=== PATIENT | male | born 1965 | race Caucasian/White ===

== ENCOUNTER 2019-12-13 09:25 | Emergency (ER) | payer BC ==
[2019-12-13] MEDS ORDERED: amLODIPine 5 MG Tab PO ONE (09:48)
[2019-12-13] MEDS ORDERED: Nitroglycerin 0.4 MG Tab.SL SL ONE (09:51)
[2019-12-13 10:01] VITALS: PULSE 73
[2019-12-13] MEDS ORDERED: Aspirin 81 MG Tab.Chew PO ONE (10:04)
--- NOTE | 2019-12-13 10:04 | EDM.PDOC ---
ED HPI GENERAL MEDICAL PROBLEM - General Chief Complaint: Chest Pain Stated Complaint: CHEST PAIN, SOB Time Seen by Provider: 12/13/19 09:40 Source of Information: Reports: Patient History Limitations: Reports: No Limitations - History of Present Illness INITIAL COMMENTS - FREE TEXT/NARRATIVE: comes in from work states he was hauling things at work when he developed the pain in the left side of the chest wall with radiation to the left arm up to the left elbow has pain in the left side of the neck also about 6-8 states he had the same pain 2 weeks ago and went in to be seen . Was told he needed to have tests run, he declined . So was told if pain returns and is more painful he should come in pt is a smoker , 1/2 pack a day has history of hypertension , not taking medications does not know whether he has had stress test done in the past Ate breakfast ( cant check lipid levels) Chest Pain Score (Numeric/FACES): 5 - Related Data Allergies Allergy/AdvReac Type Severity Reaction Status Date / Time No Known Allergies Allergy Verified 07/23/16 13:56 Home Meds: Home Meds amLODIPine [Norvasc] 5 mg PO DAILY #30 tab 12/13/19 [Rx] Past Medical History HEENT History: Reports: None Cardiovascular History: Reports: Hypertension Respiratory History: Reports: None Gastrointestinal History: Reports: Other (See Below) Other Gastrointestinal History: diverticulitis Genitourinary History: Reports: Other (See Below) Other Genitourinary History: Hx kidney stones Musculoskeletal History: Reports: None Neurological History: Reports: None Psychiatric History: Reports: None Endocrine/Metabolic History: Reports: None Hematologic History: Reports: None Immunologic History: Reports: None Oncologic (Cancer) History: Reports: None Dermatologic History: Reports: None - Infectious Disease History Infectious Disease History: Reports: Chicken Pox, Measles, Mumps - Past Surgical History HEENT Surgical History: Reports: None Cardiovascular Surgical History: Reports: None Respiratory Surgical History: Reports: None Endocrine Surgical History: Reports: None Musculoskeletal Surgical History: Reports: None Oncologic Surgical History: Reports: None Social & Family History - Family History Family Medical History: Noncontributory - Tobacco Use Smoking Status *Q: Current Every Day Smoker Years of Tobacco use: 30 Packs/Tins Daily: 0.5 Used Tobacco, but Quit: No - Caffeine Use Caffeine Use: Reports: Soda - Recreational Drug Use Recreational Drug Use: No ED ROS GENERAL - Review of Systems Review Of Systems: See Below Constitutional: Reports: No Symptoms HEENT: Reports: No Symptoms Respiratory: Reports: Pleuritic Chest Pain, Other (left side chest wall pain) Cardiovascular: Reports: Chest Pain, Blood Pressure Problem, Dyspnea on Exertion Endocrine: Reports: No Symptoms GI/Abdominal: Reports: No Symptoms, Distension Musculoskeletal: Reports: Neck Pain (left sided), Shoulder Pain (left sided), Arm Pain (left sided) Skin: Reports: No Symptoms Neurological: Reports: No Symptoms Psychiatric: Reports: No Symptoms. Denies: Other Hematologic/Lymphatic: Reports: No Symptoms ED EXAM, GENERAL - Physical Exam Exam: See Below Exam Limited By: No Limitations General Appearance: Alert, WD/WN, Anxious, Obese Eye Exam: Bilateral Eye: EOMI Ears: Normal External Exam Nose: Normal Inspection Throat/Mouth: Normal Inspection, Normal Oropharynx Head: Atraumatic Neck: Supple, Non-Tender, Full Range of Motion Respiratory/Chest: Lungs Clear, Normal Breath Sounds, Decreased Breath Sounds, Other (chest wall tenderness on deep palpation on the left wall, between about 2 -5 intercostal spaced mid claviculat lini) Cardiovascular: No Gallop, No JVD, No Murmur GI/Abdominal: Soft, Non-Tender Neurological: Alert, Oriented, CN II-XII Intact, Normal Cognition, Normal Gait, Normal Reflexes, No Motor/Sensory Deficits Psychiatric: Normal Affect Skin Exam: Warm, Dry EKG INTERPRETATION EKG Date: 12/13/19 Rhythm: NSR [place]: Normal P-Wave: Present Course - Vital Signs Last Recorded V/S: Last Vital Signs Temp 36.6 C 12/13/19 09:41 Pulse 73 12/13/19 10:00 Resp 20 12/13/19 10:00 BP 137/82 12/13/19 10:45 Pulse Ox 95 12/13/19 10:00 - Orders/Labs/Meds Orders: Active Orders 24 hr Category Date Time Status EKG Documentation Completion [RC] ASDIRECTED Care 12/13/19 09:50 Active EKG Documentation Completion [RC] ASDIRECTED Care 12/13/19 10:58 Ordered Chest 1V Frontal [CR] Stat Exams 12/13/19 09:50 Taken EKG 12 Lead [EK] Routine Ther 12/13/19 09:49 Ordered EKG 12 Lead [EK] Routine Ther 12/13/19 10:57 Ordered Labs: Laboratory Tests 12/13/19 12/13/19 12/13/19 Range/Units 10:05 10:05 10:05 WBC 12.1 H (4.5-12.0) X10-3/uL RBC 5.21 (4.30-5.75) x10(6)uL Hgb 17.0 (13.5-17.8) g/dL Hct 51.6 H (30.0-51.3) % MCV 99.1 H (80-96) fL MCH 32.6 (27.7-33.6) pg MCHC 32.8 (32.2-35.4) g/dL RDW 14.1 (11.5-15.5) % Plt Count 385 H (125-369) X10(3)uL MPV 8.9 (7.4-10.4) fL Neut % (Auto) 53.5 (46-82) % Lymph % (Auto) 32.4 (13-37) % Owen % (Auto) 10.5 (4-12) % Eos % (Auto) 3 (1.0-5.0) % Baso % (Auto) 1 (0-2) % Neut # (Auto) 6.4 (1.6-8.3) # Lymph # (Auto) 3.9 (0.6-5.0) # Owen # (Auto) 1.3 (0.0-1.3) # Eos # (Auto) 0.4 (0.0-0.8) # Baso # (Auto) 0.1 (0.0-0.2) # Sodium 143 (135-145) mmol/L Potassium 4.3 (3.5-5.3) mmol/L Chloride 106 (100-110) mmol/L Carbon Dioxide 30 (21-32) mmol/L BUN 10 (7-18) mg/dL Creatinine 1.0 (0.70-1.30) mg/dL Est Cr Clr Drug Dosing 95.44 mL/min Estimated GFR (MDRD) > 60 (>60) BUN/Creatinine Ratio 10.0 (9-20) Glucose 111 (80-116) mg/dL Calcium 8.6 (8.6-10.2) mg/dL Magnesium 1.8 (1.8-2.5) mg/dL Troponin I (4.0-60.3) pg/mL NT-Pro-B Natriuret Pep 40 (<=125) pg/mL 12/13/19 Range/Units 10:05 WBC (4.5-12.0) X10-3/uL RBC (4.30-5.75) x10(6)uL Hgb (13.5-17.8) g/dL Hct (30.0-51.3) % MCV (80-96) fL MCH (27.7-33.6) pg MCHC (32.2-35.4) g/dL RDW (11.5-15.5) % Plt Count (125-369) X10(3)uL MPV (7.4-10.4) fL Neut % (Auto) (46-82) % Lymph % (Auto) (13-37) % Owen % (Auto) (4-12) % Eos % (Auto) (1.0-5.0) % Baso % (Auto) (0-2) % Neut # (Auto) (1.6-8.3) # Lymph # (Auto) (0.6-5.0) # Owen # (Auto) (0.0-1.3) # Eos # (Auto) (0.0-0.8) # Baso # (Auto) (0.0-0.2) # Sodium (135-145) mmol/L Potassium (3.5-5.3) mmol/L Chloride (100-110) mmol/L Carbon Dioxide (21-32) mmol/L BUN (7-18) mg/dL Creatinine (0.70-1.30) mg/dL Est Cr Clr Drug Dosing mL/min Estimated GFR (MDRD) (>60) BUN/Creatinine Ratio (9-20) Glucose (80-116) mg/dL Calcium (8.6-10.2) mg/dL Magnesium (1.8-2.5) mg/dL Troponin I 7.5 (4.0-60.3) pg/mL NT-Pro-B Natriuret Pep (<=125) pg/mL Meds: Medications Discontinued Medications Generic Name Dose Route Start Last Admin Trade Name Freq PRN Reason Stop Dose Admin Amlodipine Besylate 5 mg 12/13/19 09:48 12/13/19 10:22 Norvasc PO 12/13/19 09:49 5 mg ONETIME ONE Administration Aspirin 324 mg 12/13/19 10:04 12/13/19 10:05 Aspirin PO 12/13/19 10:05 324 mg ONETIME ONE Administration Ketorolac Tromethamine 30 mg 12/13/19 10:47 Toradol IM 12/13/19 10:48 ONETIME ONE Ketorolac Tromethamine 30 mg 12/13/19 10:54 12/13/19 10:55 Toradol IVPUSH 12/13/19 10:55 30 mg ONETIME ONE Administration Nitroglycerin 0.4 mg 12/13/19 09:51 12/13/19 10:00 Nitrostat SL 12/13/19 09:52 0.4 mg ONETIME ONE Administration - Re-Assessments/Exams Free Text/Narrative Re-Assessment/Exam: 12/13/19 10:27 labs ekg, cxray ordered pt given Aspirin , NTG and stable still has chest pain despite NTG 12/13/19 10:58 pt given amlodipine , still has pain given IV toradol discussed with pt , will need to have follow up with PCP to get stress test done , recheck BP as will start on amlodipine pt agrees Departure - Departure Time of Disposition: 11:10 Disposition: Home, Self-Care 01 Condition: Fair Clinical Impression: Atypical chest pain, Hypertension, Acute costochondritis Instructions: Costochondritis, [id number], Exercise Stress Test, [id number] , How to Take Your Blood Pressure, [id number]-[id number], DASH Eating Plan Referrals: Vladislav Moffett MD [Primary Care Provider] - Forms: ED Department Discharge Additional Instructions: 1) Take low dose aspirin 81mg 3 times a week 2) Low or NO salt diet 3) Make appointment to see your PCP in 2-3 days for BP recheck and possible stress test 4) return to ER if any concerns Sepsis Event Note - Evaluation Sepsis Screening Result: No Definite Risk - Focused Exam Vital Signs: Vital Signs Temp Pulse Resp BP BP Pulse Ox 12/13/19 10:45 137/82 12/13/19 10:24 139/87 12/13/19 10:22 139/87 12/13/19 10:00 73 20 162/106 H 129/114 H 95 12/13/19 09:41 36.6 C 75 15 156/108 H 95 Date Exam was Performed: 12/13/19 Time Exam was Performed: 11:09 - My Orders Last 24 Hours: My Active Orders 12/13/19 09:49 EKG 12 Lead [EK] Routine 12/13/19 09:50 EKG Documentation Completion [RC] ASDIRECTED Chest 1V Frontal [CR] Stat 12/13/19 10:57 EKG 12 Lead [EK] Routine 12/13/19 10:58 EKG Documentation Completion [RC] ASDIRECTED - Assessment/Plan Last 24 Hours: My Active Orders 12/13/19 09:49 EKG 12 Lead [EK] Routine 12/13/19 09:50 EKG Documentation Completion [RC] ASDIRECTED Chest 1V Frontal [CR] Stat 12/13/19 10:57 EKG 12 Lead [EK] Routine 12/13/19 10:58 EKG Documentation Completion [RC] ASDIRECTED
[2019-12-13 10:46] VITALS: BP 137/82
[2019-12-13] MEDS ORDERED: Ketorolac 30 MG/ML SDV IM ONE (10:47)
[2019-12-13] MEDS ORDERED: Ketorolac 30 MG/ML SDV IVPUSH ONE (10:54)
--- NOTE | 2019-12-13 11:13 | CR ---
INDICATION: Chest pain. CHEST, ONE VIEW: AP upright portable view of the chest was obtained 12/13/2019 - no comparisons. The heart appears somewhat enlarged. No gross consolidating pneumonia or effusion was seen. Overlying EKG leads are noted. Evidence of exogenous obesity is noted. IMPRESSION: No acute process. MTDD
== END 2019-12-13 11:27 | disposition home or self-care (01) ==
LOC: FB.ED 09:25
DX: M94.0 Chondrocostal junction syndrome [Tietze] (principal); I10 Essential (primary) hypertension; F17.210 Nicotine dependence, cigarettes, uncomplicated
CPT/HCPCS: 36415; 71045; 80048; 83735; 83880; 84484; 85025; 93005; 96374; 99285; A9270; J1885

== ENCOUNTER 2020-11-13 20:36 | Emergency (ER) | payer BC ==
[2020-11-13] MEDS ORDERED: predniSONE 20 MG Tab PO STA (20:46)
[2020-11-13] MEDS ORDERED: Morphine 4 MG/ML VIAL IM STA (20:54)
[2020-11-13] MEDS ORDERED: Azithromycin 500 MG Tab PO STA (21:44)
--- NOTE | 2020-11-13 21:51 | EDM.PDOC ---
ED HPI GENERAL MEDICAL PROBLEM - General Chief Complaint: Respiratory Problem Stated Complaint: DIFFICULTY BREATHING Time Seen by Provider: 11/13/20 20:45 Source of Information: Reports: Patient History Limitations: Reports: No Limitations - History of Present Illness INITIAL COMMENTS - FREE TEXT/NARRATIVE: Patient presented to the ED because of dyspnea and right arm pain since he was diagnosed with Covid in Aug 2020. He just had a chest CT and was given an inhaler but still he is dyspneic. There is no fever, chills, cough or cold. With regards to his R arm pain it's ahrp,4/10, and intermittent. He is taking ibuprofen without significant relief. Right arm/Low back Pain Score (Numeric/FACES): 8 - Related Data Allergies Allergy/AdvReac Type Severity Reaction Status Date / Time No Known Allergies Allergy Verified 11/13/20 21:18 Home Meds: Home Meds amLODIPine [Norvasc] 5 mg PO DAILY #30 tab 12/13/19 [Rx] Azithromycin [Zithromax] 250 mg PO DAILY #6 tablet 11/13/20 [Rx] Lisinopril/Hydrochlorothiazide [Lisinopril-Hctz 10-12.5 mg Tab] 1 tab PO DAILY 11/13/20 [History] hydrOXYzine pamoate [Vistaril] 50 mg PO BEDTIME PRN #30 cap 11/13/20 [Rx] metFORMIN [Glucophage XR] 500 mg PO BID 11/13/20 [History] predniSONE [Prednisone] 40 mg PO DAILY #8 tablet 11/13/20 [Rx] Past Medical History HEENT History: Reports: None Cardiovascular History: Reports: Hypertension Respiratory History: Reports: None Gastrointestinal History: Reports: Other (See Below) Other Gastrointestinal History: diverticulitis Genitourinary History: Reports: Other (See Below) Other Genitourinary History: Hx kidney stones Musculoskeletal History: Reports: None Neurological History: Reports: None Psychiatric History: Reports: None Endocrine/Metabolic History: Reports: None, Diabetes, Type I, Obesity/BMI 30+ Hematologic History: Reports: None Immunologic History: Reports: None Oncologic (Cancer) History: Reports: None Dermatologic History: Reports: None - Infectious Disease History Infectious Disease History: Reports: Chicken Pox, Measles, Mumps - Past Surgical History HEENT Surgical History: Reports: None Cardiovascular Surgical History: Reports: None Respiratory Surgical History: Reports: None GI Surgical History: Reports: Colonoscopy Endocrine Surgical History: Reports: None Musculoskeletal Surgical History: Reports: None Oncologic Surgical History: Reports: None Social & Family History - Family History Family Medical History: No Pertinent Family History - Tobacco Use Tobacco Use Status *Q: Current Every Day Tobacco User Years of Tobacco use: 30 Packs/Tins Daily: 0.5 - Caffeine Use Caffeine Use: Reports: Energy Drinks - Recreational Drug Use Recreational Drug Use: No ED ROS GENERAL - Review of Systems Review Of Systems: See Below Constitutional: Reports: No Symptoms HEENT: Reports: No Symptoms Respiratory: Reports: Shortness of Breath Cardiovascular: Reports: No Symptoms Endocrine: Reports: No Symptoms GI/Abdominal: Reports: No Symptoms : Reports: No Symptoms Musculoskeletal: Reports: No Symptoms Skin: Reports: No Symptoms Neurological: Reports: No Symptoms ED EXAM, GENERAL - Physical Exam Exam: See Below Exam Limited By: No Limitations General Appearance: Alert, No Apparent Distress Ears: Normal External Exam, Normal Canal Nose: Normal Inspection, Normal Mucosa, No Blood Throat/Mouth: Normal Inspection, Normal Lips Head: Atraumatic, Normocephalic Neck: Normal Inspection, Supple, Non-Tender Respiratory/Chest: No Respiratory Distress, Lungs Clear, Normal Breath Sounds, No Accessory Muscle Use, Chest Non-Tender Cardiovascular: Normal Peripheral Pulses, Regular Rate, Rhythm, No Edema, No Gallop, No JVD, No Murmur GI/Abdominal: Normal Bowel Sounds, Soft, Non-Tender (Male) Exam: No Hernia Back Exam: Normal Inspection Extremities: Normal Inspection, Normal Range of Motion, Non-Tender Neurological: Alert, Oriented, CN II-XII Intact, Normal Cognition Psychiatric: Normal Affect Skin Exam: Warm, Intact Lymphatic: No Adenopathy Course - Vital Signs Text/Narrative:: 02 VNC prednisone 40 mg PO x1 Zithromax 500 mg PO x1 Vistaril 50 mg PO x1 Morphine 4 mg IM x1 Last Recorded V/S: Last Vital Signs Temp 36.6 C 11/13/20 21:40 Pulse 83 11/13/20 21:40 Resp 20 11/13/20 21:40 BP 136/81 11/13/20 21:40 Pulse Ox 95 11/13/20 21:40 - Orders/Labs/Meds Orders: Active Orders 24 hr Category Date Time Status Chest 1V Frontal [CR] Stat Exams 11/13/20 20:55 Taken EKG 12 Lead [EK] Routine Ther 11/13/20 20:55 Ordered Labs: Laboratory Tests 11/13/20 11/13/20 11/13/20 Range/Units 21:00 21:00 21:00 WBC 13.6 H (3.2-10.1) x10-3/uL RBC 5.07 (3.90-5.90) x10(6)uL Hgb 16.0 (12.9-17.7) g/dL Hct 50.5 H (38.3-50.1) % MCV 99.6 H (80.8-98.7) fL MCH 31.6 (27.0-33.3) pg MCHC 31.7 (28.7-35.3) g/dL RDW 16.1 H (12.4-15.0) % Plt Count 336 (117-477) x10(3)uL MPV 9.7 (6.7-11.0) fL Neut % (Auto) 66.0 (40.3-71.8) % Lymph % (Auto) 22.5 (15.8-45.3) % [place] % (Auto) 8.4 (5.5-15.2) % Eos % (Auto) 2.6 (0.1-6.8) % Baso % (Auto) 0.5 (0.3-3.8) % Neut # (Auto) 9.0 H (1.7-6.9) x10-3/uL Lymph # (Auto) 3.1 (0.5-4.5) x10-3/uL [place] # (Auto) 1.1 (0.0-1.2) x10-3/uL Eos # (Auto) 0.4 (0.0-0.6) x10-3/uL Baso # (Auto) 0.1 (0.0-0.3) x10-3/uL Sodium 141 (135-145) mmol/L Potassium 4.1 (3.5-5.3) mmol/L Chloride 101 D (100-110) mmol/L Carbon Dioxide 34 H (21-32) mmol/L BUN 14 (7-18) mg/dL Creatinine 1.0 (0.70-1.30) mg/dL Est Cr Clr Drug Dosing 94.33 mL/min Estimated GFR (MDRD) > 60 (>60) BUN/Creatinine Ratio 14.0 (9-20) Glucose 178 H (80-116) mg/dL Calcium 9.1 (8.6-10.2) mg/dL Total Bilirubin 0.4 (0.1-1.3) mg/dL AST 19 (5-25) IU/L ALT 44 H (12-36) U/L Alkaline Phosphatase 83 (56-112) IU/L Troponin I 9.8 (4.0-60.3) pg/mL NT-Pro-B Natriuret Pep (<=125) pg/mL Total Protein 8.1 H (6.0-8.0) g/dL Albumin 3.4 L (3.5-5.2) g/dL Globulin 4.7 g/dL Albumin/Globulin Ratio 0.7 11/13/20 Range/Units 21:00 WBC (3.2-10.1) x10-3/uL RBC (3.90-5.90) x10(6)uL Hgb (12.9-17.7) g/dL Hct (38.3-50.1) % MCV (80.8-98.7) fL MCH (27.0-33.3) pg MCHC (28.7-35.3) g/dL RDW (12.4-15.0) % Plt Count (117-477) x10(3)uL MPV (6.7-11.0) fL Neut % (Auto) (40.3-71.8) % Lymph % (Auto) (15.8-45.3) % [place] % (Auto) (5.5-15.2) % Eos % (Auto) (0.1-6.8) % Baso % (Auto) (0.3-3.8) % Neut # (Auto) (1.7-6.9) x10-3/uL Lymph # (Auto) (0.5-4.5) x10-3/uL [place] # (Auto) (0.0-1.2) x10-3/uL Eos # (Auto) (0.0-0.6) x10-3/uL Baso # (Auto) (0.0-0.3) x10-3/uL Sodium (135-145) mmol/L Potassium (3.5-5.3) mmol/L Chloride (100-110) mmol/L Carbon Dioxide (21-32) mmol/L BUN (7-18) mg/dL Creatinine (0.70-1.30) mg/dL Est Cr Clr Drug Dosing mL/min Estimated GFR (MDRD) (>60) BUN/Creatinine Ratio (9-20) Glucose (80-116) mg/dL Calcium (8.6-10.2) mg/dL Total Bilirubin (0.1-1.3) mg/dL AST (5-25) IU/L ALT (12-36) U/L Alkaline Phosphatase (56-112) IU/L Troponin I (4.0-60.3) pg/mL NT-Pro-B Natriuret Pep 157 H (<=125) pg/mL Total Protein (6.0-8.0) g/dL Albumin (3.5-5.2) g/dL Globulin g/dL Albumin/Globulin Ratio Meds: Medications Discontinued Medications Generic Name Dose Route Start Last Admin Trade Name Freq PRN Reason Stop Dose Admin Azithromycin 500 mg 11/13/20 21:44 11/13/20 21:47 Zithromax PO 11/13/20 21:45 500 mg NOW STA Administration Hydroxyzine Pamoate 50 mg 11/13/20 21:44 11/13/20 21:47 Vistaril PO 11/13/20 21:45 50 mg NOW STA Administration Morphine Sulfate 4 mg 11/13/20 20:54 11/13/20 21:00 Morphine IM 11/13/20 20:55 4 mg NOW STA Administration Prednisone 40 mg 11/13/20 20:46 11/13/20 20:52 Prednisone PO 11/13/20 20:47 40 mg NOW STA Administration Departure - Departure Time of Disposition: 21:50 Disposition: Home, Self-Care 01 Condition: Good Clinical Impression: Post-COVID syndrome, Insomnia - Discharge Information Prescriptions: predniSONE [Prednisone] 40 mg PO DAILY #8 tablet hydrOXYzine pamoate [Vistaril] 50 mg PO BEDTIME PRN #30 cap PRN Reason: Sleep Azithromycin [Zithromax] 250 mg PO DAILY #6 tablet Instructions: COVID-19 Frequently Asked Questions Referrals: Nicolas Mcgregor, [Primary Care Provider] - Forms: ED Department Discharge Additional Instructions: Please read discharge instructions on post covid syndrome Take prednisone 40 mg every morning starting tomorrow for 4 more days Z-[id number] as directed Visataril/hydroxyzine 50-100 mg at bed time as needed for sleep Follow up as needed Sepsis Event Note (ED) - Evaluation Sepsis Screening Result: No Definite Risk - Focused Exam Vital Signs: Vital Signs Temp Pulse Resp BP Pulse Ox 11/13/20 21:40 36.6 C 83 20 136/81 95 - My Orders Last 24 Hours: My Active Orders 11/13/20 20:55 Chest 1V Frontal [CR] Stat EKG 12 Lead [EK] Routine - Assessment/Plan Last 24 Hours: My Active Orders 11/13/20 20:55 Chest 1V Frontal [CR] Stat EKG 12 Lead [EK] Routine
[2020-11-13 22:04] VITALS: BP 136/81; PULSE 83
--- NOTE | 2020-11-14 10:22 | CR ---
CHEST ONE VIEW INDICATION: Dyspnea. Portable AP upright view of the chest was obtained 11/13/2020 and compared with 12/13/2019. The heart may be moderately enlarged or at least at the upper limits of normal in size, as previously. Somewhat heavy markings are noted which may be on the basis of pulmonary fibrosis or possibly unusual pneumonia such as a viral pneumonia. This should be correlated clinically. Pleural thickening is noted right greater than left laterally. No consolidating pneumonia or definite effusion was seen. IMPRESSION: 1. No definite acute process but cannot exclude unusual pneumonia versus fibrosis in the upper middle to lower lung dillard. 2. Probable exogenous obesity. 3. The heart is somewhat prominent in size and may be slightly enlarged. MTDD
== END 2020-11-13 22:02 | disposition home or self-care (01) ==
LOC: FB.ED 20:36
DX: R06.00 Dyspnea, unspecified (principal); G47.00 Insomnia, unspecified; E10.9 Type 1 diabetes mellitus without complications; E66.9 Obesity, unspecified; Z72.0 Tobacco use; Z68.41 Body mass index [BMI] 40.0-44.9, adult; Z86.16 Personal history of COVID-19; Z79.84 Long term (current) use of oral hypoglycemic drugs; Z79.899 Other long term (current) drug therapy
CPT/HCPCS: 36415; 71045; 80053; 83880; 84484; 85025; 93005; 96372; 99285; A9270; J2270; J7512; 99283

== ENCOUNTER 2020-11-20 07:45 | Observation (INO) | payer BC ==
[2020-11-20] MEDS ORDERED: Albuterol/Ipratropium 3.0-0.5 MG/3 ML Neb Soln NEB ONE (08:13)
[2020-11-20] MEDS: Sodium Chloride 0.9% 10 ML Syringe FLUSH PRN ×4 (08:15→10:01)
--- NOTE | 2020-11-20 08:19 | EDM.PDOC ---
ED HPI GENERAL MEDICAL PROBLEM - General Chief Complaint: Syncope Stated Complaint: SOB Time Seen by Provider: 11/20/20 08:13 Source of Information: Reports: Patient History Limitations: Reports: No Limitations - History of Present Illness INITIAL COMMENTS - FREE TEXT/NARRATIVE: Patient tested positive for COVID-19 on 08/07/20 and since then has been having intermittent right sided chest pain and SOB. Patient presented to the ED today because after walking to the bathroom at work, he became SOB and dizzy and believes he may have "passed out." At some point he checked his 02 sat using his personal pulseoximeter and it read 84%. He complains of sharp right sided chest pain since last night that radiates to right arm and is worse with inspiration. He also complains of exertional dyspnea. Denies cough. He did have chills last night, but no documented fever. He was treated at [facility] on 11/13/20 for similar complaints, diagnosed with post-COVID syndrome, and prescribed Zithromax, Prednisone, and Vistaril. Patient continues to smoke cigarettes. He has no formal diagnosis of chronic lung disease. Denies prior h/o CAD or DVT/PE. Onset Date: 11/19/20 Location: Reports: Chest Quality: Reports: Sharp Severity: Moderate Associated Symptoms: Reports: Chest Pain, Shortness of Breath Right Upper Chest Pain Score (Numeric/FACES): 8 - Related Data Allergies Allergy/AdvReac Type Severity Reaction Status Date / Time No Known Allergies Allergy Verified 11/20/20 08:07 Home Meds: Home Meds amLODIPine [Norvasc] 5 mg PO DAILY #30 tab 12/13/19 [Rx] Lisinopril/Hydrochlorothiazide [Lisinopril-Hctz 10-12.5 mg Tab] 1 tab PO DAILY 11/13/20 [History] hydrOXYzine pamoate [Vistaril] 50 mg PO BEDTIME PRN #30 cap 11/13/20 [Rx] metFORMIN [Glucophage XR] 500 mg PO BID 11/13/20 [History] Albuterol Sulfate [Albuterol Sulfate Hfa] 2 puff INH Q4HR PRN 11/20/20 [History] Albuterol/Ipratropium [DuoNeb 3.0-0.5 MG/3 ML] 1 unit INH TID 11/20/20 [History] Betamethasone/Propylene Glyc [Betamethasone Dp Aug 0.05% Oin] 1 applic .ROUTE BID PRN 11/20/20 [History] Fluticasone Propion/Salmeterol [Fluticasone-Salmeterol 250-50] 1 puff INH BID 11/20/20 [History] Nitroglycerin [Nitrostat] 0.4 mg SL ASDIRECTED PRN 11/20/20 [History] Temazepam [Restoril] 15 mg PO BEDTIME PRN 11/20/20 [History] traZODone HCl [Trazodone HCl] 50 mg PO BEDTIME 11/20/20 [History] Past Medical History HEENT History: Reports: None Cardiovascular History: Reports: Hypertension. Denies: Blood Clots/VTE/DVT, Bypass, CAD, [place] Respiratory History: Reports: None Gastrointestinal History: Reports: Other (See Below) Other Gastrointestinal History: diverticulitis Genitourinary History: Reports: Other (See Below) Other Genitourinary History: Hx kidney stones Musculoskeletal History: Reports: None Neurological History: Reports: None Psychiatric History: Reports: None Endocrine/Metabolic History: Reports: None, Diabetes, Type II, Obesity/BMI 30+ Hematologic History: Reports: None Immunologic History: Reports: None Oncologic (Cancer) History: Reports: None Dermatologic History: Reports: None - Infectious Disease History Infectious Disease History: Reports: Chicken Pox, Measles, Mumps - Past Surgical History HEENT Surgical History: Reports: None Cardiovascular Surgical History: Reports: None Respiratory Surgical History: Reports: None GI Surgical History: Reports: Colonoscopy Endocrine Surgical History: Reports: None Musculoskeletal Surgical History: Reports: None Oncologic Surgical History: Reports: None Social & Family History - Family History Family Medical History: No Pertinent Family History - Tobacco Use Tobacco Use Status *Q: Current Every Day Tobacco User Tobacco Use Within Last Twelve Months: Cigarettes - Caffeine Use Caffeine Use: Reports: Energy Drinks ED ROS GENERAL - Review of Systems Review Of Systems: Comprehensive ROS is negative, except as noted in HPI. ED EXAM, GENERAL - Physical Exam Exam: See Below Exam Limited By: No Limitations General Appearance: Alert, WD/WN, No Apparent Distress Throat/Mouth: No Airway Compromise Head: Atraumatic, Normocephalic Neck: Full Range of Motion Respiratory/Chest: No Respiratory Distress, No Accessory Muscle Use, Decreased Breath Sounds, Wheezing, Other (right chest wall and shoulder tenderness) Cardiovascular: Regular Rate, Rhythm, No Gallop, No Murmur, No Rub Peripheral Pulses: 2+: Radial (L) Back Exam: Full Range of Motion Extremities: Normal Range of Motion, No Pedal Edema Neurological: Alert, Normal Cognition Psychiatric: Normal Affect, Normal Mood Skin Exam: Warm, Dry, Intact #1 Interpretation EKG Date: 11/20/20 Time: 07:58 Rhythm: NSR Rate (Beats/Min): 68 [place]: LAD-Left [place] Deviation P-Wave: Present QRS: Normal ST-T: Normal QT: Normal Comparison: No Change (11/13/20) Course - Vital Signs Last Recorded V/S: Last Vital Signs Temp 36.8 C 11/20/20 08:07 Pulse 73 11/20/20 08:07 Resp 26 H 11/20/20 08:07 BP 136/83 11/20/20 08:07 Pulse Ox 97 11/20/20 09:47 - Orders/Labs/Meds Orders: Active Orders 24 hr Category Date Time Status Admission Status [Patient Status] [ADT] Routine ADT 11/20/20 11:53 Ordered EKG Documentation Completion [RC] ASDIRECTED Care 11/20/20 08:12 Active RT Aerosol Therapy [RC] ASDIRECTED Care 11/20/20 08:13 Active RT Aerosol Therapy [RC] ASDIRECTED Care 11/20/20 09:44 Active Chest w Cont [CT] Stat Exams 11/20/20 09:01 Taken Sodium Chloride 0.9% [Saline Flush] Med 11/20/20 08:13 Active 10 ml FLUSH ASDIRECTED PRN Saline Lock Insert [OM.PC] Routine Oth 11/20/20 08:13 Ordered EKG 12 Lead [EK] Stat Ther 11/20/20 08:11 Ordered Medication Orders Sodium Chloride (Saline Flush) 10 ml FLUSH ASDIRECTED PRN PRN Reason: Keep Vein Open Last Admin: 11/20/20 10:01 Dose: 10 ml Documented by: Admin: 11/20/20 09:30 Dose: 10 ml Documented by: Admin: 11/20/20 08:49 Dose: 10 ml Documented by: Admin: 11/20/20 08:15 Dose: 10 ml Documented by: [email or web address] Labs: Laboratory Tests 11/20/20 11/20/20 11/20/20 Range/Units 08:25 08:25 08:25 WBC 16.3 H (3.2-10.1) x10-3/uL RBC 5.10 (3.90-5.90) x10(6)uL Hgb 16.3 (12.9-17.7) g/dL Hct 50.7 H (38.3-50.1) % MCV 99.4 H (80.8-98.7) fL MCH 31.9 (27.0-33.3) pg MCHC 32.1 (28.7-35.3) g/dL RDW 15.8 H (12.4-15.0) % Plt Count 345 (117-477) x10(3)uL MPV 9.3 (6.7-11.0) fL Add Manual Diff Yes Neutrophils % (Manual) 66 (46-82) % Lymphocytes % (Manual) 25 (13-37) % Monocytes % (Manual) 7 (4-12) % Eosinophils % (Manual) 2 (0-5) % PT 10.4 (9.0-11.1) sec INR 0.96 L (1.00-1.24) APTT 28.6 (24.4-33.2) SECONDS D-Dimer, Quantitative 0.29 (0.0-0.59) mg/LFEU POC VBG pH (7.32-7.43) pH Units POC VBG pCO2 (41-51) mmHg POC VBG HCO3 (21-29) mmol/L VBG Base Excess (-2-3) mmol/L O2 Delivery Device Sodium 138 (135-145) mmol/L Potassium 4.2 (3.5-5.3) mmol/L Chloride 99 L (100-110) mmol/L Carbon Dioxide 35 H (21-32) mmol/L BUN 19 H (7-18) mg/dL Creatinine 0.9 (0.70-1.30) mg/dL Est Cr Clr Drug Dosing 101.79 mL/min Estimated GFR (MDRD) > 60 (>60) BUN/Creatinine Ratio 21.1 H (9-20) Glucose 121 H (80-116) mg/dL Calcium 8.9 (8.6-10.2) mg/dL Total Bilirubin 0.8 (0.1-1.3) mg/dL AST 17 D (5-25) IU/L ALT 45 H (12-36) U/L Alkaline Phosphatase 82 (56-112) IU/L Troponin I (4.0-60.3) pg/mL Total Protein 7.9 (6.0-8.0) g/dL Albumin 3.5 (3.5-5.2) g/dL Globulin 4.4 g/dL Albumin/Globulin Ratio 0.8 11/20/20 11/20/20 11/20/20 Range/Units 08:25 08:25 11:00 WBC (3.2-10.1) x10-3/uL RBC (3.90-5.90) x10(6)uL Hgb (12.9-17.7) g/dL Hct (38.3-50.1) % MCV (80.8-98.7) fL MCH (27.0-33.3) pg MCHC (28.7-35.3) g/dL RDW (12.4-15.0) % Plt Count (117-477) x10(3)uL MPV (6.7-11.0) fL Add Manual Diff Neutrophils % (Manual) (46-82) % Lymphocytes % (Manual) (13-37) % Monocytes % (Manual) (4-12) % Eosinophils % (Manual) (0-5) % PT (9.0-11.1) sec INR (1.00-1.24) APTT (24.4-33.2) SECONDS D-Dimer, Quantitative (0.0-0.59) mg/LFEU POC VBG pH 7.30 L (7.32-7.43) pH Units POC VBG pCO2 80 H (41-51) mmHg POC VBG HCO3 39 H (21-29) mmol/L VBG Base Excess 13 H (-2-3) mmol/L O2 Delivery Device Nasal cannula Sodium (135-145) mmol/L Potassium (3.5-5.3) mmol/L Chloride (100-110) mmol/L Carbon Dioxide (21-32) mmol/L BUN (7-18) mg/dL Creatinine (0.70-1.30) mg/dL Est Cr Clr Drug Dosing mL/min Estimated GFR (MDRD) (>60) BUN/Creatinine Ratio (9-20) Glucose (80-116) mg/dL Calcium (8.6-10.2) mg/dL Total Bilirubin (0.1-1.3) mg/dL AST (5-25) IU/L ALT (12-36) U/L Alkaline Phosphatase (56-112) IU/L Troponin I 8.1 8.7 (4.0-60.3) pg/mL Total Protein (6.0-8.0) g/dL Albumin (3.5-5.2) g/dL Globulin g/dL Albumin/Globulin Ratio 11/20/20 Range/Units 11:00 WBC (3.2-10.1) x10-3/uL RBC (3.90-5.90) x10(6)uL Hgb (12.9-17.7) g/dL Hct (38.3-50.1) % MCV (80.8-98.7) fL MCH (27.0-33.3) pg MCHC (28.7-35.3) g/dL RDW (12.4-15.0) % Plt Count (117-477) x10(3)uL MPV (6.7-11.0) fL Add Manual Diff Neutrophils % (Manual) (46-82) % Lymphocytes % (Manual) (13-37) % Monocytes % (Manual) (4-12) % Eosinophils % (Manual) (0-5) % PT (9.0-11.1) sec INR (1.00-1.24) APTT (24.4-33.2) SECONDS D-Dimer, Quantitative (0.0-0.59) mg/LFEU POC VBG pH 7.28 L (7.32-7.43) pH Units POC VBG pCO2 80 H (41-51) mmHg POC VBG HCO3 38 H (21-29) mmol/L VBG Base Excess 11 H (-2-3) mmol/L O2 Delivery Device Nasal cannula Sodium (135-145) mmol/L Potassium (3.5-5.3) mmol/L Chloride (100-110) mmol/L Carbon Dioxide (21-32) mmol/L BUN (7-18) mg/dL Creatinine (0.70-1.30) mg/dL Est Cr Clr Drug Dosing mL/min Estimated GFR (MDRD) (>60) BUN/Creatinine Ratio (9-20) Glucose (80-116) mg/dL Calcium (8.6-10.2) mg/dL Total Bilirubin (0.1-1.3) mg/dL AST (5-25) IU/L ALT (12-36) U/L Alkaline Phosphatase (56-112) IU/L Troponin I (4.0-60.3) pg/mL Total Protein (6.0-8.0) g/dL Albumin (3.5-5.2) g/dL Globulin g/dL Albumin/Globulin Ratio Meds: Medications Generic Name Dose Route Start Last Admin Trade Name Freq PRN Reason Stop Dose Admin Sodium Chloride 10 ml 11/20/20 08:13 11/20/20 10:01 Saline Flush FLUSH 10 ml ASDIRECTED PRN Administration Keep Vein Open Discontinued Medications Generic Name Dose Route Start Last Admin Trade Name Freq PRN Reason Stop Dose Admin Albuterol 2.5 mg 11/20/20 09:44 11/20/20 09:47 Proventil Neb Soln NEB 11/20/20 09:45 2.5 mg ONETIME ONE Administration Albuterol/Ipratropium 3 ml 11/20/20 08:13 11/20/20 08:32 Duoneb 3.0-0.5 Mg/3 Ml NEB 11/20/20 08:14 3 ml ONETIME ONE Administration Aspirin 324 mg 11/20/20 08:39 11/20/20 08:45 Aspirin PO 11/20/20 08:40 324 mg ONETIME ONE Administration Iopamidol 100 ml 11/20/20 09:05 11/20/20 09:24 Isovue-370 (76%) IV 11/20/20 09:06 100 ml . DIRECTED ONE Administration Ketorolac Tromethamine 30 mg 11/20/20 08:39 11/20/20 08:45 Toradol IVPUSH 11/20/20 08:40 30 mg ONETIME ONE Administration Methylprednisolone Sodium Succinate 250 mg 11/20/20 09:02 11/20/20 09:14 Solu-Medrol IVPUSH 11/20/20 09:03 250 mg ONETIME ONE Administration Morphine Sulfate 4 mg 11/20/20 09:48 11/20/20 10:01 Morphine IVPUSH 11/20/20 09:49 4 mg ONETIME ONE Administration - Radiology Interpretation Free Text/Narrative:: CXR: No acute process. (ED provider interpretation) CT Chest w/ IV contrast: IMPRESSION: 1. No acute or specific finding to explain right-sided chest pain or shortness of breath. 2. Solitary 8 mm right upper lobe pulmonary nodule is indeterminate and should be managed per Fleischner society guidelines. Dictated by Ethan Castillo MD @ Nov 20 2020 9:56AM. - Re-Assessments/Exams Free Text/Narrative Re-Assessment/Exam: 11/20/20 09:47 Patient feels slightly better after DuoNeb. Lung exam has not changed. Sa02 87% RA with ambulation. 11/20/20 11:55 Pain improved after Morphine 4mg IV (no change after Toradol). Dr. Jaime agreed to admit patient for observation. Departure - Departure Time of Disposition: 11:56 Disposition: Home, Self-Care 01 Condition: Fair Clinical Impression: Hypoxemia, Hypercarbia Forms: ED Department Discharge Sepsis Event Note (ED) - Focused Exam Vital Signs: Vital Signs Temp Pulse Resp BP Pulse Ox Pulse Ox 11/20/20 09:47 97 11/20/20 08:07 36.8 C 73 26 H 136/83 99 - My Orders Last 24 Hours: My Active Orders 11/20/20 08:11 EKG 12 Lead [EK] Stat 11/20/20 08:12 EKG Documentation Completion [RC] ASDIRECTED 11/20/20 08:13 RT Aerosol Therapy [RC] ASDIRECTED Sodium Chloride 0.9% [Saline Flush] 10 ml FLUSH ASDIRECTED PRN Saline Lock Insert [OM.PC] Routine 11/20/20 09:01 Chest w Cont [CT] Stat 11/20/20 09:44 RT Aerosol Therapy [RC] ASDIRECTED 11/20/20 11:53 Admission Status [Patient Status] [ADT] Routine - Assessment/Plan Last 24 Hours: My Active Orders 11/20/20 08:11 EKG 12 Lead [EK] Stat 11/20/20 08:12 EKG Documentation Completion [RC] ASDIRECTED 11/20/20 08:13 RT Aerosol Therapy [RC] ASDIRECTED Sodium Chloride 0.9% [Saline Flush] 10 ml FLUSH ASDIRECTED PRN Saline Lock Insert [OM.PC] Routine 11/20/20 09:01 Chest w Cont [CT] Stat 11/20/20 09:44 RT Aerosol Therapy [RC] ASDIRECTED 11/20/20 11:53 Admission Status [Patient Status] [ADT] Routine
[2020-11-20] MEDS ORDERED: Aspirin 81 MG Tab.Chew PO ONE (08:39)
[2020-11-20] MEDS ORDERED: Ketorolac 30 MG/ML SDV IVPUSH ONE (08:39)
[2020-11-20 08:49] LABS: BASE EXCESS VENOUS,POC 13 mmol/L (-2-3); HCO3 VENOUS,POC 39 mmol/L (21-29); PCO2 VENOUS,POC 80 mmHg (41-51)
[2020-11-20] MEDS ORDERED: methylPREDNISolone Sodium Succinate 500 MG/4 ML SDV IVPUSH ONE (09:02)
[2020-11-20] MEDS ORDERED: Iopamidol 755 Mg/ML 100 ML Bottle IV ONE (09:05)
[2020-11-20] MEDS ORDERED: Albuterol 0.083% 2.5 MG/3 ML Neb Soln NEB ONE (09:44)
[2020-11-20] MEDS ORDERED: Morphine 4 MG/ML VIAL IVPUSH ONE (09:48)
--- NOTE | 2020-11-20 10:20 | CR ---
INDICATION: Chest pain, shortness of breath. CHEST, ONE VIEW: AP portable upright view of the chest was obtained 11/20/20 and compared with 11/13/20 and 12/13/19. Allowing for changes in technique, a little change is suggested overall in the appearance of the chest. The heart appears to be somewhat enlarged but is emphasized by the AP positioning. Overlying EKG leads are noted. Evidence of exogenous obesity is again noted. No gross consolidating pneumonia or effusion was seen. However, it is difficult to exclude areas of patchy bronchopneumonia in the mid to lower lung dillard versus fibrosis with the heavy markings present. A mild degree of CHF is difficult to exclude with minimal interstitial lung edema also. IMPRESSION: 1. No definite acute process, however, it is difficult to exclude a mild or early CHF and minimal interstitial lung edema as well as areas of patchy bronchopneumonia in the mid to lower lung dillard due to the heavy markings. 2. Exogenous obesity. 3. Probable pulmonary fibrosis. MTDD
[2020-11-20 11:41] LABS: PH VENOUS,POC 7.28 pH Units (7.32-7.43)
[2020-11-20 11:42] LABS: BASE EXCESS VENOUS,POC 11 mmol/L (-2-3); HCO3 VENOUS,POC 38 mmol/L (21-29); PCO2 VENOUS,POC 80 mmHg (41-51)
[2020-11-20] MEDS ORDERED: Pneumococcal Polyvalent-23 Vaccine 0.5 ML SDV IM ONE (13:00)
[2020-11-20] MEDS ORDERED: Temazepam 15 MG Cap PO PRN (14:46)
[2020-11-20] MEDS ORDERED: Nitroglycerin 0.4 MG Tab.SL SL PRN (14:46)
[2020-11-20] MEDS: Budesonide 0.5 MG/2 ML Neb Susp NEB SCH ×2 (14:54→20:12)
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
[2020-11-20] MEDS ORDERED: Pneumococcal 13-Valent Conjugate Vaccine 0.5 ML Syringe IM ONE (15:08)
[2020-11-20] MEDS ORDERED: Glucagon,Human Recombinant 1 MG Vial IM PRN (15:36)
[2020-11-20] MEDS ORDERED: 50% Dextrose in Water 50 ML Syringe IVPUSH PRN (15:36)
[2020-11-20] MEDS ORDERED: metFORMIN 500 MG Tab PO SCH (18:00)
[2020-11-20] MEDS: Ibuprofen 200 MG Tab PO SCH ×2 (18:07→23:23)
[2020-11-20] MEDS: Acetaminophen 500 MG Tab PO SCH ×2 (18:07→23:23)
[2020-11-20] MEDS: Insulin Lispro 100 Unit/ML 3 ML KwikPen SUBCUT SCH (18:08)
[2020-11-20] MEDS ORDERED: Gabapentin 300 MG Cap PO ONE (20:29)
[2020-11-20] MEDS ORDERED: traZODone 50 MG Tab PO SCH (21:00)
[2020-11-20] MEDS ORDERED: Ketorolac 30 MG/ML SDV IVPUSH PRN (22:58)
[2020-11-21] MEDS: Budesonide 0.5 MG/2 ML Neb Susp NEB SCH (06:27)
[2020-11-21] MEDS: Ibuprofen 200 MG Tab PO SCH ×2 (06:29→14:26)
[2020-11-21] MEDS: Acetaminophen 500 MG Tab PO SCH ×2 (06:29→14:28)
[2020-11-21] MEDS ORDERED: Lactated Ringers 1,000 ML IV SCH (07:45)
[2020-11-21] MEDS: Sodium Chloride 0.9% 10 ML Syringe FLUSH PRN (08:17)
[2020-11-21] MEDS: Insulin Lispro 100 Unit/ML 3 ML KwikPen SUBCUT SCH ×2 (08:23→14:28)
[2020-11-21] MEDS ORDERED: amLODIPine 5 MG Tab PO SCH (09:00)
[2020-11-21] MEDS ORDERED: Hydrochlorothiazide/Lisinopril 12.5-10 MG Tab PO SCH (09:00)
[2020-11-21 11:26] VITALS: BP 122/54; PULSE 74
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
[2020-11-21] MEDS ORDERED: Budesonide 0.5 MG/2 ML Neb Susp NEB SCH (20:00)
== END 2020-11-21 15:30 | disposition home or self-care (01) ==
LOC: FB.ED 07:45 → FB.MS 11:53 → UNDOADMOB 11:53
PROVIDERS: ADMIT Family Medicine; ATTEND Family Medicine
DX: R09.02 Hypoxemia (principal); R07.89 Other chest pain; R55 Syncope and collapse; R06.02 Shortness of breath; D72.829 Elevated white blood cell count, unspecified; R91.1 Solitary pulmonary nodule; I10 Essential (primary) hypertension; E11.9 Type 2 diabetes mellitus without complications; F17.210 Nicotine dependence, cigarettes, uncomplicated; E66.01 Morbid (severe) obesity due to excess calories; Z68.42 Body mass index [BMI] 45.0-49.9, adult; Z86.16 Personal history of COVID-19; Z90.81 Acquired absence of spleen; Z98.890 Other specified postprocedural states; Z79.4 Long term (current) use of insulin; Z79.899 Other long term (current) drug therapy
CPT/HCPCS: 36415; 71045; 71260; 80048; 80053; 81001; 82962; 84484; 85025; 85379; 85610; 85730; 90670; 93005; 93010; 94640; 96374; 96375; 96376; 99285; 99285-25; A9270-GY; G0009; G0378; J1815; J1885; J2270; J2930; J7120; J7620-GY; Q9967

== ENCOUNTER 2021-09-27 05:31 | Emergency (ER) | payer BC ==
--- NOTE | 2021-09-27 05:35 | EDM.PDOC ---
ED HPI GENERAL MEDICAL PROBLEM - General Stated Complaint: PAIN IN LEFT ARM Time Seen by Provider: 09/27/21 05:35 Source of Information: Reports: Patient History Limitations: Reports: No Limitations - History of Present Illness INITIAL COMMENTS - FREE TEXT/NARRATIVE: 56-year-old male who reports that he went to bed at approximately 8:30 PM last night and at about 10:30 PM he awoke with left arm pain that was a tingling and aching type pain. He walked around and the pain did not go away but it did improve enough for him to lay back down about 11:30 PM and he went back to sleep. He was awakened several times through the night with left arm pain and then this morning at 4:30 a.m., he was having more severe left arm pain and had left-sided chest pain as well. He has had no diaphoresis. The pain did seem to be somewhat worse and now it is in his chest and this is worse with breathing. He has felt somewhat short of breath. He also has reportedly a headache that is a throbbing and aching headache that is global. He currently reports that the pain as an 8/10. It is an aching and tingling pain and it does not seem to have any exacerbating or alleviating factors and his arm he reports he has not had pain like this in the past. He states that he does have some nitroglycerin at home but he did not take any. He did not take any of his medications and came directly to the emergency department via private vehicle with his significant other and with his father. There are no other associated signs or symptoms. There are no other modifying factors. Onset: Other (10:30 PM last night) Duration: Getting Worse Location: Reports: Chest, Upper Extremity, Left Quality: Reports: Ache (And tingling.) Severity: Severe Improves with: Reports: None Worsens with: Reports: Breathing (For the chest pain.) Context: Reports: Other (As above.) Associated Symptoms: Reports: No Other Symptoms (Except as above.) Treatments BATCH MIXER: Reports: Other (see below) (Nothing.) - Related Data Allergies Allergy/AdvReac Type Severity Reaction Status Date / Time No Known Allergies Allergy Verified 09/27/21 06:29 Home Meds: Home Meds amLODIPine [Norvasc] 5 mg PO DAILY #30 tab 12/13/19 [Rx] Lisinopril/Hydrochlorothiazide [Lisinopril-Hctz 10-12.5 mg Tab] 1 tab PO DAILY 11/13/20 [History] Albuterol Sulfate [Albuterol Sulfate Hfa] 2 puff INH Q4HR PRN 11/20/20 [History] Albuterol/Ipratropium [DuoNeb 3.0-0.5 MG/3 ML] 1 unit INH TID 11/20/20 [History] Acetaminophen [Tylenol Extra Strength] 500 mg PO Q6H tablet 11/21/20 [Rx] Ibuprofen [Motrin] 200 mg PO Q6H tablet 11/21/20 [Rx] Empagliflozin [Jardiance] 10 mg PO DAILY 09/27/21 [History] Gabapentin [Neurontin] 300 mg PO TID 09/27/21 [History] Orphenadrine [Norflex] 100 mg PO BID PRN #14 tab 09/27/21 [Rx] Rosuvastatin [Crestor] 40 mg PO BEDTIME 09/27/21 [History] methylPREDNISolone [Medrol Dose Pack] 1 dose PO DAILY #1 dospk 09/27/21 [Rx] Past Medical History HEENT History: Reports: Epistaxis Cardiovascular History: Reports: Hypertension, SOB on Exertion Respiratory History: Reports: SOB, Other (See Below) Other Respiratory History: Pt has had ongoing SOB that has gotten worse since he had COVID the end of 2019 Gastrointestinal History: Reports: Diverticulosis, Other (See Below) Other Gastrointestinal History: diverticulitis Genitourinary History: Reports: Renal Calculus Musculoskeletal History: Reports: Arthritis Psychiatric History: Reports: Anxiety Endocrine/Metabolic History: Reports: Diabetes, Type II, Obesity/BMI 30+ Dermatologic History: Reports: Eczema - Infectious Disease History Infectious Disease History: Reports: Chicken Pox, Measles, Mumps, Novel Coronavirus, Other (See Below) Other Infectious Disease History: COVID POSITIVE 08/07/2020 - Past Surgical History HEENT Surgical History: Reports: Tonsillectomy GI Surgical History: Reports: Appendectomy, Cholecystectomy, Colonoscopy Other GI Surgeries/Procedures: splenectomy Social & Family History - Tobacco Use Tobacco Use Status *Q: Current Every Day Tobacco User - Caffeine Use Caffeine Use: Reports: None - Alcohol Use Alcohol Use History: Yes Alcohol Use Frequency: Weekly - Recreational Drug Use Recreational Drug Use: No - Living Situation & Occupation Living situation: Reports: with Significant Other Occupation: Employed (Works at the [employer] ED ROS GENERAL - Review of Systems Review Of Systems: See Below Constitutional: Denies: Fever, Chills, Diaphoresis HEENT: Denies: Throat Pain, Vision Change Respiratory: Reports: Shortness of Breath. Denies: Cough Cardiovascular: Reports: Chest Pain, Dyspnea on Exertion (This has been chronic since he had Covid.). Denies: Palpitations Endocrine: Reports: Fatigue GI/Abdominal: Reports: Nausea. Denies: Vomiting : Denies: Dysuria, Hematuria Musculoskeletal: Reports: Arm Pain (Left arm pain). Denies: Neck Pain Skin: Denies: Diaphoresis, Rash Neurological: Reports: Headache. Denies: Dizziness Psychiatric: Reports: Anxiety Hematologic/Lymphatic: Denies: Easy Bleeding, Easy Bruising ED EXAM, GENERAL - Physical Exam Exam: See Below Exam Limited By: No Limitations General Appearance: Alert, Moderate Distress (Pierces some discomfort but nontoxic appearing.), Obese Eye Exam: Bilateral Eye: EOMI, Normal Inspection (Sclera are anicteric.), PERRL Ears: Normal External Exam, Hearing Grossly Normal Ear Exam: Bilateral Ear: Auricle Normal Nose: Normal Inspection, Normal Mucosa, No Blood Throat/Mouth: Normal Inspection, Normal Oropharynx, Normal Voice, No Airway Compromise Head: Atraumatic, Normocephalic Neck: Normal Inspection, Supple, Non-Tender, Full Range of Motion Respiratory/Chest: No Respiratory Distress, Lungs Clear, Normal Breath Sounds, No Accessory Muscle Use, Other (Some tenderness in his left lateral chest.) Cardiovascular: Normal Peripheral Pulses, Regular Rate, Rhythm, No Murmur Peripheral Pulses: 2+: Radial (L), Radial (R), Dorsalis Pedis (L), Dorsalis Pedis (R) GI/Abdominal: Normal Bowel Sounds, Soft, Non-Tender, No Mass, Other (Protuberant) Back Exam: Normal Inspection Extremities: Normal Inspection, Normal Range of Motion, Non-Tender, No Pedal Edema, Normal Capillary Refill Neurological: Alert, Oriented, CN II-XII Intact, Normal Cognition, No Motor/Sensory Deficits Psychiatric: Anxious Skin Exam: Warm, Dry, Intact, Normal Color, No Rash #1 Interpretation EKG Date: 09/27/21 Time: 05:32 Rhythm: NSR Rate (Beats/Min): 66 [place]: LAD-Left [place] Deviation P-Wave: Present QRS: Normal ST-T: Normal QT: Normal Comparison: No Change (No significant changes from an EKG performed on 11/20/2020.) Course - Vital Signs Last Recorded V/S: Last Vital Signs Temp Pulse 68 09/27/21 05:31 Resp 18 09/27/21 05:31 BP 129/87 09/27/21 06:05 Pulse Ox 97 09/27/21 05:31 - Orders/Labs/Meds Orders: Active Orders 24 hr Category Date Time Status Chest 1V Frontal [CR] Stat Exams 09/27/21 05:49 Taken Nitroglycerin [Nitrostat] Med 09/27/21 05:51 Active 0.4 mg SL Q5M PRN Sodium Chloride 0.9% [Normal Saline] 1,000 ml Med 09/27/21 06:00 Active IV ASDIRECTED Sodium Chloride 0.9% [Saline Flush] Med 09/27/21 05:49 Active 10 ml FLUSH ASDIRECTED PRN Peripheral IV Insertion Adult [OM.PC] Routine Oth 09/27/21 05:49 Ordered EKG 12 Lead [EK] Routine Ther 09/27/21 05:49 Ordered Medication Orders Sodium Chloride (Normal Saline) 1,000 mls @ 125 mls/hr IV ASDIRECTED ROSALBA Last Admin: 09/27/21 06:00 Dose: 125 mls/hr Documented by: GERMAINE Nitroglycerin (Nitroglycerin 0.4 Mg Tab.Sl) 0.4 mg SL Q5M PRN PRN Reason: Chest Pain Last Admin: 09/27/21 06:05 Dose: 0.4 mg Documented by: GERMAINE Sodium Chloride (Sodium Chloride 0.9% 10 Ml Syringe) 10 ml FLUSH ASDIRECTED PRN PRN Reason: Keep Vein Open Last Admin: 09/27/21 05:50 Dose: 10 ml Documented by: GERMAINE Labs: Laboratory Tests 09/27/21 09/27/21 09/27/21 Range/Units 06:10 06:10 06:10 WBC 11.6 H (3.2-10.1) x10-3/uL RBC 4.78 (3.90-5.90) x10(6)uL Hgb 15.3 (12.9-17.7) g/dL Hct 45.7 (38.3-50.1) % MCV 95.7 (80.8-98.7) fL MCH 32.0 (27.0-33.3) pg MCHC 33.5 (28.7-35.3) g/dL RDW 14.7 (12.4-15.0) % Plt Count 411 (117-477) x10(3)uL MPV 8.4 (6.7-11.0) fL Neut % (Auto) 60.2 (40.3-71.8) % Lymph % (Auto) 23.4 (15.8-45.3) % [place] % (Auto) 11.5 (5.5-15.2) % Eos % (Auto) 4.1 (0.1-6.8) % Baso % (Auto) 0.8 (0.3-3.8) % Neut # (Auto) 7.0 H (1.7-6.9) x10-3/uL Lymph # (Auto) 2.7 (0.5-4.5) x10-3/uL [place] # (Auto) 1.3 H (0.0-1.2) x10-3/uL Eos # (Auto) 0.5 (0.0-0.6) x10-3/uL Baso # (Auto) 0.1 (0.0-0.3) x10-3/uL D-Dimer, Quantitative 0.48 (0.0-0.59) mg/LFEU Sodium 139 (135-145) mmol/L Potassium 3.6 D (3.5-5.3) mmol/L Chloride 101 (100-110) mmol/L Carbon Dioxide 29 (21-32) mmol/L BUN 12 D (7-18) mg/dL Creatinine 0.9 (0.70-1.30) mg/dL Est Cr Clr Drug Dosing 103.57 mL/min Estimated GFR (MDRD) > 60 (>60) BUN/Creatinine Ratio 13.3 (9-20) Glucose 125 H (80-116) mg/dL Calcium 8.7 (8.6-10.2) mg/dL Magnesium 2.0 (1.8-2.5) mg/dL Total Bilirubin 0.6 (0.1-1.3) mg/dL AST 21 D (5-25) IU/L ALT 44 H (12-36) U/L Alkaline Phosphatase 85 (56-112) IU/L Troponin I (4.0-60.3) pg/mL Total Protein 7.7 (6.0-8.0) g/dL Albumin 3.3 L (3.5-5.2) g/dL Globulin 4.4 g/dL Albumin/Globulin Ratio 0.8 09/27/21 Range/Units 06:10 WBC (3.2-10.1) x10-3/uL RBC (3.90-5.90) x10(6)uL Hgb (12.9-17.7) g/dL Hct (38.3-50.1) % MCV (80.8-98.7) fL MCH (27.0-33.3) pg MCHC (28.7-35.3) g/dL RDW (12.4-15.0) % Plt Count (117-477) x10(3)uL MPV (6.7-11.0) fL Neut % (Auto) (40.3-71.8) % Lymph % (Auto) (15.8-45.3) % [place] % (Auto) (5.5-15.2) % Eos % (Auto) (0.1-6.8) % Baso % (Auto) (0.3-3.8) % Neut # (Auto) (1.7-6.9) x10-3/uL Lymph # (Auto) (0.5-4.5) x10-3/uL [place] # (Auto) (0.0-1.2) x10-3/uL Eos # (Auto) (0.0-0.6) x10-3/uL Baso # (Auto) (0.0-0.3) x10-3/uL D-Dimer, Quantitative (0.0-0.59) mg/LFEU Sodium (135-145) mmol/L Potassium (3.5-5.3) mmol/L Chloride (100-110) mmol/L Carbon Dioxide (21-32) mmol/L BUN (7-18) mg/dL Creatinine (0.70-1.30) mg/dL Est Cr Clr Drug Dosing mL/min Estimated GFR (MDRD) (>60) BUN/Creatinine Ratio (9-20) Glucose (80-116) mg/dL Calcium (8.6-10.2) mg/dL Magnesium (1.8-2.5) mg/dL Total Bilirubin (0.1-1.3) mg/dL AST (5-25) IU/L ALT (12-36) U/L Alkaline Phosphatase (56-112) IU/L Troponin I 6.8 (4.0-60.3) pg/mL Total Protein (6.0-8.0) g/dL Albumin (3.5-5.2) g/dL Globulin g/dL Albumin/Globulin Ratio Meds: Medications Generic Name Dose Route Start Last Admin Trade Name Ronnellq PRN Reason Stop Dose Admin Sodium Chloride 1,000 mls @ 125 mls/hr 09/27/21 06:00 09/27/21 06:00 Normal Saline IV 125 mls/hr ASDIRECTED ROASLBA Administration Nitroglycerin 0.4 mg 09/27/21 05:51 09/27/21 06:05 Nitroglycerin 0.4 Mg Tab.Sl SL 0.4 mg Q5M PRN Administration Chest Pain Sodium Chloride 10 ml 09/27/21 05:49 09/27/21 05:50 Sodium Chloride 0.9% 10 Ml Syringe FLUSH 10 ml ASDIRECTED PRN Administration Keep Vein Open Discontinued Medications Generic Name Dose Route Start Last Admin Trade Name Ronnellq PRN Reason Stop Dose Admin Aspirin 324 mg 09/27/21 05:51 09/27/21 05:50 Aspirin 81 Mg Tab.Chew PO 09/27/21 05:52 324 mg ONETIME ONE Administration Diazepam 5 mg 09/27/21 06:49 09/27/21 06:55 Diazepam 10 Mg/2 Ml Syringe IVPUSH 09/27/21 06:50 5 mg ONETIME ONE Administration Ketorolac Tromethamine 30 mg 09/27/21 06:49 09/27/21 06:50 Ketorolac 30 Mg/Ml Sdv IVPUSH 09/27/21 06:50 30 mg ONETIME ONE Administration - Radiology Interpretation Free Text/Narrative:: Portable chest x-ray showed no acute disease per my read. - Re-Assessments/Exams Free Text/Narrative Re-Assessment/Exam: 09/27/21 06:40: The patient has received nitroglycerin 1 sublingual and his blood pressure is lower. He states that it really had no effect on his arm pain. We will not repeat the nitroglycerin. I will order Toradol and Valium to be given IV. White blood cell count is 11.6. Hemoglobin is 15.3. Lately count is normal. A d-dimer was normal. Sodium is 139. Potassium is 3.6. Bicarbonate is 29. BUN is 12 and creatinine 0.9. Glucose is 125. LFTs are normal. A troponin was 6.8 and normal. His EKG was unchanged from previous and showed no patterns of injury or ischemia. 09/27/21 07:15: Chest x-ray was normal. He states that the pain is somewhat improved but he still has ongoing pain. He does feel more relaxed in his arm. His blood pressure has improved. He is sitting up and appears in no acute distress. He is now telling me that he has had some left leg pain for which he was placed on Neurontin with some relief in the past and the left arm pain has actually been something that has been coming on for some time over the past week and it does seem to be worse with movement. With the normal troponin after 6-8 hours of ongoing left arm pain and some chest pain and with the EKG that was change from previous and showed no injury pattern, I feel VA has been ruled out and it is unlikely that this is a heart related issue. With a normal d-dimer, I feel PE is ruled out. This does sound like an overuse type injury. He just started a new job and he does repetitive functions with his arms. It could also be related to a disc problem in his neck. I am placing the patient on a Medrol Dosepak to treat for this possibility and I will also give him a prescription of Norflex to use for muscle spasm and muscle pain. He can take ibuprofen and Tylenol as needed for his pain. He needs to follow-up with Dr. Mcgregor. He is off work for the next 4 days. I have told him to avoid any repetitive actions with his arms. Precautions and reasons for return to the emergency department were discussed with the patient while he was in the emergency department and were detailed in the patient's discharge instructions. Departure - Departure Time of Disposition: :22 Disposition: Home, Self-Care 01 Condition: Good Clinical Impression: Left arm pain Chest pain Qualifiers: Chest pain type: unspecified Qualified Code(s): R07.9 - Chest pain, unspecified - Discharge Information Prescriptions: methylPREDNISolone [Medrol Dose Pack] 1 dose PO DAILY #1 dospk Orphenadrine [Norflex] 100 mg PO BID PRN #14 tab PRN Reason: Muscle spasm or muscle pain Instructions: Nonspecific Chest Pain, Adult, [id number] Referrals: Nicolas Mcgregor DO [Primary Care Provider] - Forms: ED Department Discharge Care Plan Goals: All of your blood tests were reassuringly normal. Your glucose was 125. Your heart enzyme test was normal. With your pain ongoing all night, a negative heart enzyme test pretty much rules out a heart attack in any heart-related issue. The screening test for blood clots were was negative as well. I am unsure of the cause of your chest pain and left arm pain but with your previous problems with left leg pain, I am concerned that this could be related to a disc problem in your neck causing nerve pain. It could also be an overuse type injury. I would recommend avoiding any repetitive use of your left arm. I have sent prescriptions to your pharmacy for a muscle relaxer (Norflex) and an anti- inflammatory medication (Medrol). You can take ibuprofen and Tylenol as needed for your pain. Follow up with your primary provider (you should call his office to arrange an appointment today). Back to the emergency department for worse breathing, severe weakness, unrelenting vomiting or any other concerning signs or symptoms. Sepsis Event Note (ED) - Focused Exam Vital Signs: Vital Signs Pulse Resp BP BP Pulse Ox 09/27/21 06:05 129/87 09/27/21 05:31 68 18 164/99 H 97 - My Orders Last 24 Hours: My Active Orders 09/27/21 05:49 Chest 1V Frontal [CR] Stat Sodium Chloride 0.9% [Saline Flush] 10 ml FLUSH ASDIRECTED PRN Peripheral IV Insertion Adult [OM.PC] Routine EKG 12 Lead [EK] Routine 09/27/21 05:51 Nitroglycerin [Nitrostat] 0.4 mg SL Q5M PRN 09/27/21 06:00 Sodium Chloride 0.9% [Normal Saline] 1,000 ml IV ASDIRECTED - Assessment/Plan Last 24 Hours: My Active Orders 09/27/21 05:49 Chest 1V Frontal [CR] Stat Sodium Chloride 0.9% [Saline Flush] 10 ml FLUSH ASDIRECTED PRN Peripheral IV Insertion Adult [OM.PC] Routine EKG 12 Lead [EK] Routine 09/27/21 05:51 Nitroglycerin [Nitrostat] 0.4 mg SL Q5M PRN 09/27/21 06:00 Sodium Chloride 0.9% [Normal Saline] 1,000 ml IV ASDIRECTED
[2021-09-27] MEDS ORDERED: Sodium Chloride 0.9% 10 ML Syringe FLUSH PRN (05:49)
[2021-09-27 05:51] VITALS: PULSE 68
[2021-09-27] MEDS ORDERED: Nitroglycerin 0.4 MG Tab.SL SL PRN (05:51)
[2021-09-27] MEDS ORDERED: Aspirin 81 MG Tab.Chew PO ONE (05:51)
[2021-09-27] MEDS ORDERED: Sodium Chloride 0.9% 1,000 ML IV SCH (06:00)
[2021-09-27] MEDS ORDERED: Ketorolac 30 MG/ML SDV IVPUSH ONE (06:49)
[2021-09-27 06:54] VITALS: BP 129/87
== END 2021-09-27 07:30 | disposition home or self-care (01) ==
LOC: FB.ED 05:31
DX: R07.9 Chest pain, unspecified (principal); M79.602 Pain in left arm; I10 Essential (primary) hypertension; E11.9 Type 2 diabetes mellitus without complications; E66.9 Obesity, unspecified; Z68.41 Body mass index [BMI] 40.0-44.9, adult; Z79.899 Other long term (current) drug therapy; Z72.0 Tobacco use
CPT/HCPCS: 36415; 71045; 80053; 83735; 84484; 85025; 85379; 93005; 96374; 96375; 99285-25; A9270-GY; J1885; J3360; J7030

== ENCOUNTER 2021-11-21 07:15 | Emergency (ER) | payer BC ==
[2021-11-21] MEDS ORDERED: Ketorolac 30 MG/ML SDV IM ONE (07:36)
[2021-11-21] MEDS ORDERED: Acetaminophen/oxyCODONE 325-5 MG Tab PO STA (08:10)
[2021-11-21 11:10] VITALS: BP 147/80; PULSE 70
== END 2021-11-21 09:45 | disposition home or self-care (01) ==
LOC: FB.ED 07:15
DX: S82.831A Other fracture of upper and lower end of right fibula, initial encounter for closed fracture (principal); E78.00 Pure hypercholesterolemia, unspecified; I10 Essential (primary) hypertension; J44.9 Chronic obstructive pulmonary disease, unspecified; E11.9 Type 2 diabetes mellitus without complications; E66.9 Obesity, unspecified; Z68.41 Body mass index [BMI] 40.0-44.9, adult; Z79.899 Other long term (current) drug therapy; Z72.0 Tobacco use; W00.0XXA Fall on same level due to ice and snow, initial encounter
CPT/HCPCS: 73610-RT; 96372; 99283-25; A9270-GY; J1885

== ENCOUNTER 2023-08-31 17:32 | Emergency (ER) | payer BC ==
[2023-08-31] MEDS ORDERED: Acetaminophen/HYDROcodone 325-5 MG Tab PO ONE ×2 (17:33→18:12)
[2023-08-31] MEDS ORDERED: Lidocaine 2% Viscous Solution 15 ML UD PO ONE ×3 (17:33→18:13)
[2023-08-31 18:27] VITALS: BP 141/86; PULSE 77
== END 2023-08-31 19:15 | disposition home or self-care (01) ==
LOC: FB.ED 17:32
DX: K05.30 Chronic periodontitis, unspecified (principal); K05.6 Periodontal disease, unspecified; J44.9 Chronic obstructive pulmonary disease, unspecified; I10 Essential (primary) hypertension; E11.9 Type 2 diabetes mellitus without complications; Z88.5 Allergy status to narcotic agent; Z79.84 Long term (current) use of oral hypoglycemic drugs; Z79.4 Long term (current) use of insulin; Z86.16 Personal history of COVID-19; Z79.899 Other long term (current) drug therapy; Z90.49 Acquired absence of other specified parts of digestive tract; E66.9 Obesity, unspecified; Z68.38 Body mass index [BMI] 38.0-38.9, adult
CPT/HCPCS: 99282; 99283; A9270

== ENCOUNTER 2025-09-12 14:21 | Emergency (ER) | payer BC ==
[2025-09-12 14:45] VITALS: PULSE 72
[2025-09-12 15:24] LABS: BASE EXCESS VENOUS,POC 0 mmol/L (-2 - 3+); PCO2 VENOUS,POC 31 mmHg (41-51); PH VENOUS,POC 7.48 pH Units (7.32-7.43)
[2025-09-12 15:27] LABS: BASOPHILS ABSOLUTE AUTO 0.1 x10-3/uL (0.0-0.3); BASOPHILS PERCENT AUTO 1.0 % (0.3-3.8); EOSINOPHILS ABSOLUTE AUTO 0.0 x10-3/uL (0.0-0.6); EOSINOPHILS PERCENT AUTO 0.8 % (0.1-6.8); LYMPHOCYTES ABSOLUTE AUTO 1.9 x10-3/uL (0.5-4.5); LYMPHOCYTES PERCENT AUTO 31.5 % (15.8-45.3); MEAN PLATELET VOLUME 9.2 fL (6.7-11.0); MONOCYTES ABSOLUTE AUTO 1.0 x10-3/uL (0.0-1.2); MONOCYTES PERCENT AUTO 16.9 % (5.5-15.2); NEUTROPHILS ABSOLUTE AUTO 3.0 x10-3/uL (1.7-6.9); NEUTROPHILS PERCENT AUTO 49.8 % (40.3-71.8); PLATELET COUNT,PLT 253 x10(3)uL (117-477); RED BLOOD CELL COUNT 5.02 x10(6)uL (3.90-5.90); RED CELL DISTRIBUTION WIDTH 14.7 % (12.4-15.0); WHITE BLOOD CELL COUNT,WBC 6.0 x10-3/uL (3.2-10.1)
[2025-09-12 15:32] LABS: BLOOD UREA NITROGEN,BUN 15 mg/dL (7-18); CARBON DIOXIDE,CO2 25 mmol/L (21-32); CHLORIDE,CL 101 mmol/L (100-110); CREATININE 1.0 mg/dL (0.70-1.30); EST CRCL DRUG DOSING (CG) 86.22 mL/min; ESTIMATED GFR 86 mL/min (>60); GLUCOSE RANDOM 102 mg/dL (80-116); POTASSIUM,K 3.9 mmol/L (3.5-5.3); SODIUM,NA 137 mmol/L (135-145)
[2025-09-12 15:39] LABS: A/G RATIO 1.0; ALANINE AMINOTRANSFERASE,ALT 42 U/L (12-36); ASPARTATE AMNIOTRANSFERASE,AST 33 IU/L (5-25); BILIRUBIN TOTAL 0.5 mg/dL (0.1-1.3); PROTEIN TOTAL,TP 7.5 g/dL (6.0-8.0)
[2025-09-12 15:45] LABS: PRO B-TYPE NATRIUR PEPT,BNPPRO 107.0 pg/mL (<=125)
[2025-09-12] MEDS ORDERED: Sodium Chloride 0.9% 10 ML Syringe FLUSH PRN (16:13)
[2025-09-12 16:50] VITALS: BP 128/73
[2025-09-12] MEDS: Iopamidol 755 Mg/ML 100 ML Bottle IV SCH ×2 (16:56)
== END 2025-09-12 18:00 | disposition home or self-care (01) ==
LOC: FB.ED 14:21
DX: J20.9 Acute bronchitis, unspecified (principal); J44.0 Chronic obstructive pulmonary disease with (acute) lower respiratory infection; J44.1 Chronic obstructive pulmonary disease with (acute) exacerbation; R91.1 Solitary pulmonary nodule; I10 Essential (primary) hypertension; J44.9 Chronic obstructive pulmonary disease, unspecified; E11.9 Type 2 diabetes mellitus without complications; E66.9 Obesity, unspecified; Z87.891 Personal history of nicotine dependence; Z90.49 Acquired absence of other specified parts of digestive tract; Z86.16 Personal history of COVID-19; Z88.5 Allergy status to narcotic agent; Z79.4 Long term (current) use of insulin; Z79.84 Long term (current) use of oral hypoglycemic drugs; Z79.899 Other long term (current) drug therapy; Z68.38 Body mass index [BMI] 38.0-38.9, adult
CPT/HCPCS: 36415; 71046; 71275; 80053; 83735; 83880; 84484; 85025; 85379; 87428; 93005; 99285; A9270; J7512; J7620; Q9967; 93010; 99284